=== PATIENT | male | born 2000 | race African-American/Black ===

== ENCOUNTER 2025-03-24 12:55 | Inpatient (IN) | payer OTHER ==
[~2025-03-24] VITALS: Ht 172.7 cm; Wt 75.0 kg
[~2025-03-24 12:55] MED LIST: DIVA-85 PO; LEVE750T4 PO; OLAN20TA20 PO; OMEP-148 PO
[2025-03-24 14:00] LABS: PLATELET COUNT (AUTO) 288 K/uL (150-450); RED BLOOD CELL COUNT(AUTO) 4.77 MIL/uL (4.50-5.90); RED CELL DISTRIBUTION WIDTH 13.3 % (11.5-14.5); WHITE BLOOD COUNT (AUTO) 6.0 K/uL (4.5-11.0)
[2025-03-24 14:07] LABS: CALCIUM, TOTAL 9.3 mg/dL (8.8-10.5); CREATININE 1.05 mg/dL (0.60-1.30); GLOMERULAR FILTR. RATE CALC > 60 mL/min (>60); GLUCOSE,RANDOM 77 mg/dL (70-110); SODIUM SERUM 137 mmol/L (136-145); UREA NITROGEN, BLOOD 14 mg/dL (7-18)
[2025-03-24 14:10] LABS: ALCOHOL, BLOOD (SERUM) < 3 mg/dL (0-10)
[2025-03-24 14:14] LABS: ASPARTATE AMINOTRANSFERASE 34 U/L (15-37); TOTAL PROTEIN, SERUM 7.7 g/dL (6.4-8.2)
[2025-03-24] MEDS: BACITRACIN 0.9 GM PACKET OINTMENT TP ONE (14:23)
[2025-03-24] MEDS: ACETAMINOPHEN 500 MG TABLET PO ONE (14:23)
[2025-03-24 14:31] LABS: COVID AG,FIA SOURCE NASAL SWAB
[2025-03-24 15:07] LABS: SARS-COV2 (COVID) ANTIGEN,FIA Negative (Negative)
[2025-03-24] MEDS ORDERED: ONDANSETRON HCL 4 MG/2 ML VIAL IVP PRN (17:00)
[2025-03-24] MEDS ORDERED: ACETAMINOPHEN 325 MG TABLET PO PRN (17:00)
[2025-03-24] MEDS: DOCUSATE SODIUM 100 MG CAPSULE PO SCH (20:18)
[2025-03-24 21:00] VITALS: BP 112/80; PULSE 54; RESP 20; TEMP 97.9; O2SAT 100
[2025-03-24] MEDS: HEPARIN SODIUM,PORCINE 5,000 UNITS/ML VIAL SQ SCH (23:13)
[2025-03-24] MEDS: DIVALPROEX SODIUM 250 MG ER TABLET PO SCH (23:54)
[2025-03-25 04:50] VITALS: BP 107/58; PULSE 60; RESP 18; TEMP 97.7; O2SAT 99
[2025-03-25 06:26] LABS: PLATELET COUNT (AUTO) 267 K/uL (150-450); RED BLOOD CELL COUNT(AUTO) 4.67 MIL/uL (4.50-5.90); RED CELL DISTRIBUTION WIDTH 13.1 % (11.5-14.5); WHITE BLOOD COUNT (AUTO) 5.1 K/uL (4.5-11.0)
[2025-03-25 06:42] LABS: CALCIUM, TOTAL 8.9 mg/dL (8.8-10.5); CREATININE 1.04 mg/dL (0.60-1.30); GLOMERULAR FILTR. RATE CALC > 60 mL/min (>60); GLUCOSE,RANDOM 77 mg/dL (70-110); SODIUM SERUM 139 mmol/L (136-145); UREA NITROGEN, BLOOD 14 mg/dL (7-18)
[2025-03-25 06:46] LABS: PH,URINE DRUG SCREEN 6.5 (5.0-8.0)
[2025-03-25 06:49] LABS: ALCOHOL, URINE DRUG SCREEN NEGATIVE (NEGATIVE); AMPHET/METH SCREEN,URINE NEGATIVE (NEGATIVE); BARBITURATE SCREEN, URINE NEGATIVE (NEGATIVE); CANNABINOID SCREEN,URINE NEGATIVE (NEGATIVE); COCAINE SCREEN,URINE NEGATIVE (NEGATIVE); METHADONE SCREEN, URINE NEGATIVE (NEGATIVE)
[2025-03-25 08:00] VITALS: BP 118/68; PULSE 60; RESP 17; TEMP 97.9; O2SAT 99
[2025-03-25] MEDS: OMEPRAZOLE 20 MG CAPSULE PO SCH (08:49)
[2025-03-25] MEDS: ESCITALOPRAM OXALATE 10 MG TABLET PO SCH (15:38)
[2025-03-25 16:06] VITALS: BP 121/68; PULSE 83; RESP 18; TEMP 98.1; O2SAT 99
[2025-03-25 19:32] VITALS: BP 107/59; PULSE 70; RESP 17; TEMP 97.9; O2SAT 98
[2025-03-26 05:20] VITALS: BP 144/76; PULSE 54; RESP 17; TEMP 97.7; O2SAT 99
[2025-03-26 08:00] VITALS: BP 136/95; PULSE 77; RESP 20; TEMP 97.5; O2SAT 100
[2025-03-26 20:10] VITALS: BP 106/57; PULSE 71; RESP 18; TEMP 98.4; O2SAT 99
[2025-03-27 04:55] VITALS: BP 110/63; PULSE 57; RESP 18; TEMP 98.1; O2SAT 98
[2025-03-27 08:20] VITALS: BP 105/73; PULSE 75; RESP 20; TEMP 98.2; O2SAT 98
[2025-03-27] MEDS ORDERED: ESCI-8 PO (13:33)
== END 2025-03-27 19:50 | DRG 605 ==
LOC: EMS 12:57 → EDH 16:52 → 6S 20:44
PROVIDERS: ADMIT Internal Medicine; ATTEND Internal Medicine
PROC: GZ56ZZZ Individual Psychotherapy, Supportive (ICD-10-PCS; principal; 2025-03-25)
DX: S51.812A Laceration without foreign body of left forearm, initial encounter (principal); R45.851 Suicidal ideations; F33.2 Major depressive disorder, recurrent severe without psychotic features; G40.909 Epilepsy, unspecified, not intractable, without status epilepticus; F20.9 Schizophrenia, unspecified; Z20.822 Contact with and (suspected) exposure to COVID-19; F43.10 Post-traumatic stress disorder, unspecified; F41.9 Anxiety disorder, unspecified; J45.909 Unspecified asthma, uncomplicated; W26.8XXA Contact with other sharp object(s), not elsewhere classified, initial encounter; Y93.89 Activity, other specified; Y92.89 Other specified places as the place of occurrence of the external cause; Y99.8 Other external cause status
CPT/HCPCS: 71045; 71250; 72192; 74018; 74150; 80048; 80076; 80307; 83735; 85025; 99285; G0480; J1644; 36415-L1; 36415-TC